=== PATIENT | female | born 1950 | race Caucasian/White ===

== ENCOUNTER → 2021-09-05 | Outpatient (CLI) | payer SELFPAY | LOC: LAB SHORT 12:15 | DX: R30.0 Dysuria (principal); R31.9 Hematuria, unspecified | CPT/HCPCS: 87086 ==

== ENCOUNTER 2022-04-15 07:45 | Day surgery (SDC) | payer MEDICARE ==
[~2022-04-15] VITALS: Ht 157.5 cm; Wt 74.1 kg
[2022-04-15] MEDS ORDERED: Flonase 0.05% N16 GM (08:38)
[2022-04-15] MEDS ORDERED: Co Q-1030 MG (08:39)
[2022-04-15] MEDS ORDERED: CALCIUM CIT 311 EAC7 (08:40)
[2022-04-15] MEDS ORDERED: GUAI600T33 (08:40)
[2022-04-15] MEDS ORDERED: RESVERATROL250 MG (08:41)
== END 2022-04-15 09:57 | disposition home or self-care (01) ==
LOC: ORSCSDS 07:45
PROVIDERS: Ophthalmology
PROC: 08RK3JZ Replacement of Left Lens with Synthetic Substitute, Percutaneous Approach (ICD-10-PCS; principal; 2022-04-15 09:00)
DX: H25.12 Age-related nuclear cataract, left eye (principal); Z79.899 Other long term (current) drug therapy
CPT/HCPCS: J2001; J2250; J3010; J3301; J7040; V2632

== ENCOUNTER 2022-05-20 07:17 | Day surgery (SDC) | payer MEDICARE ==
[~2022-05-20] VITALS: Ht 157.5 cm; Wt 74.2 kg
[~2022-05-20 07:17] MED LIST: CALCIUM CIT 311 EAC7; Co Q-1030 MG; Flonase 0.05% N16 GM; GUAI600T33; RESVERATROL250 MG
[2022-05-20] MEDS ORDERED: LORA10ER (07:35)
--- NOTE | 2022-05-20 07:42 | NUR ---
05/20/22 0742 Fide Espino AT 0732 [address] AT [id number]
== END 2022-05-20 09:18 | disposition home or self-care (01) ==
LOC: ORSCSDS 07:17
PROVIDERS: Ophthalmology
PROC: 08RJ3JZ Replacement of Right Lens with Synthetic Substitute, Percutaneous Approach (ICD-10-PCS; principal; 2022-05-20 08:30)
DX: H25.11 Age-related nuclear cataract, right eye (principal)
CPT/HCPCS: J2001; J2250; J3010; J7040; V2632

== ENCOUNTER 2024-08-08 12:14 | Emergency (ER) | payer OTHER, MEDICARE ==
[~2024-08-08] VITALS: Ht 157.5 cm; Wt 72.6 kg
[~2024-08-08 12:14] MED LIST changes: +LORA10ER
[2024-08-08 12:48] VITALS: BP 164/97
== END 2024-08-08 14:17 | disposition home or self-care (01) ==
LOC: ER 12:14
DX: S01.01XA Laceration without foreign body of scalp, initial encounter (principal); M19.90 Unspecified osteoarthritis, unspecified site; W01.0XXA Fall on same level from slipping, tripping and stumbling without subsequent striking against object, initial encounter; Z79.51 Long term (current) use of inhaled steroids; Z79.899 Other long term (current) drug therapy; Z88.0 Allergy status to penicillin; Z88.5 Allergy status to narcotic agent; Z88.8 Allergy status to other drugs, medicaments and biological substances; Z88.1 Allergy status to other antibiotic agents
CPT/HCPCS: 12001; 99283-25